=== PATIENT | female | born 1965 | race Caucasian/White ===

== ENCOUNTER 2025-05-17 13:20 | Outpatient (CLI) | payer MEDICAID, SELFPAY ==
--- NOTE | 2025-05-17 13:23 | BI_ITS ---
EXAM: DIAG MAMM W/CAD, UNILAT 05/17/2025 CLINICAL HISTORY: F, Age 59 y/o , ABN MAMM TECHNIQUE: Procedure Code: [id number] Modality: MG Procedure: DIAG MAMM W/CAD, UNILAT. 90 degree lateral and compression spot views of the right breast were obtained. COMPARISON: Prior outside exam(s) dated May 02, 2025.. FINDINGS: TISSUE DENSITY: There are scattered areas of fibroglandular density. Bilateral Breast Mammographic Findings: Persistent 4 mm nodular density in the central depth of the right breast. Sonographic correlation is recommended. BI/DIAG MAMM W/CAD, UNILAT IMPRESSION: Persistent 4 mm nodular density in the central depth of the right breast as diana cribed. Sonographic correlation recommended. OVERALL FINAL ASSESSMENT BI-RADS 0: INCOMPLETE - NEED ADDITIONAL IMAGING EVALUATION. RECOMMENDATION: Ultrasound Recommended Additional Recommendation none A letter with findings and recommendations will be mailed to the patient. Reading Location: [facility]
--- NOTE | 2025-05-17 13:23 | US_ITS ---
PROCEDURE: BREAST LIMITED UNILATERAL 05/17/2025 REASON FOR EXAM: F, Age 59 y/o , ABN MAMM Abnormal mammogram. COMPARISON: Prior mammogram dated May 17, 2025 in May 02, 2025.. TECHNIQUE: Procedure Code: [id number] Modality: US Procedure: BREAST LIMITED UNILATERAL FINDINGS: The entire breast was examined with ultrasound. Fibroglandular tissue. No sonographic abnormality is seen. US/Breast Limited Unilateral IMPRESSION: No sonographic abnormality is seen. BI-RADS 1: NEGATIVE RECOMMENDATION: Routine annual follow-up in 1 Year Reading Location: [id number]
== END 2025-05-17 23:59 | disposition home or self-care (01) ==
LOC: OPBI 13:21
PROVIDERS: PCP Family Medicine; Referring Provider Family Medicine; Visit Provider Family Medicine
DX: I10 Essential (primary) hypertension (principal); E03.9 Hypothyroidism, unspecified; E78.5 Hyperlipidemia, unspecified; R73.9 Hyperglycemia, unspecified; R92.8 Other abnormal and inconclusive findings on diagnostic imaging of breast
CPT/HCPCS: 76642; 77061; 77065; G0279